=== PATIENT | male | born 1960 | race Caucasian/White ===

== ENCOUNTER 2018-04-24 11:12 | Emergency (ER) | payer MEDICARE ==
[~2018-04-24] VITALS: Ht 188 cm; Wt 104.5 kg
[~2018-04-24 11:12] MED LIST: AMBIEN10 MG PO; ASPIRIN LOW DOS81 M2 PO; FIORICE1 PO; FLEXERIL5 MG PO; IBUPROFEN600 MG PO; LEVAQUIN500 MG PO; PERCOCET1 TA4 PO; TYLENOL ARTH650 M1 OR
[2018-04-24] MEDS ORDERED: ZESTRIL/PRINIV2.5 MG PO (11:21)
[2018-04-24] MEDS ORDERED: ELIQUIS5 MG PO (11:22)
[2018-04-24] MEDS ORDERED: ISOSORB MONO20 MG PO (11:22)
[2018-04-24] MEDS ORDERED: PERCOCET 10/31 COMBO PO (11:23)
[2018-04-24] MEDS ORDERED: ASPIRIN81 MG PO (11:23)
[2018-04-24] MEDS ORDERED: STATIN (11:24)
[2018-04-24] MEDS ORDERED: FAMOTIDINE20 M1 PO (11:24)
[2018-04-24] MEDS ORDERED: AUGMENTIN875TAB PO (12:12)
[2018-04-24 12:18] VITALS: BP 120/79
== END 2018-04-24 12:23 | disposition home or self-care (01) ==
LOC: ED 11:12
DX: H60.91 Unspecified otitis externa, right ear (principal); H66.91 Otitis media, unspecified, right ear; I10 Essential (primary) hypertension; I48.91 Unspecified atrial fibrillation; Z95.5 Presence of coronary angioplasty implant and graft

== ENCOUNTER 2019-05-23 07:38 | Observation (INO) | payer MEDICARE ==
[2019-05-23] VITALS (12 sets, daily range): BP systolic 88–118; BP diastolic 46–67
[~2019-05-23] VITALS: Ht 188 cm; Wt 107.3 kg
[~2019-05-23 07:38] MED LIST changes: +ASPIRIN81 MG PO; +AUGMENTIN875TAB PO; +B COMPLE2 PO; +ELIQUIS5 MG PO; +FAMOTIDINE40 M1 PO; +ISOSORB MONO20 MG PO; +LIPITOR10 M1 PO; +METOPROL TAR25 MG PO; +NITROSTAT0.4 MG SL; +OMEGA-3 FISH1000 MG PO; +PERCOCET 10/31 COMBO PO; +POTASSIUM99 MG PO; +PROBIOTIC1 TAB PO; +STATIN; +STOOL SOFTENER100 MG PO; +ZESTRIL/PRINIV2.5 MG PO
--- NOTE | 2019-05-23 12:00 | NUR ---
PT TRANSPORTED TO [facility] VIA STRETCHER ACCOMPIANED BY OR NURSES. NURSING STAFF SLIDE PT FROM STRETCHER TO BED. PT A/O X3. PERRLA. SPEECH IS CLEAR. RESP EVEN AND UNLABORED. LUNG SOUNDS CLEAR. BOWEL SOUNDS HYPOACTIVE. RT SIDE ABDOMINAL SWELLING. DRESSINGS TO RT ABDOMEN AND LT ABDOMEN; CDI. MARJAN DRAIN TO RLQ; RED FLUID NOTED; SCANT. PT C/O ABDOMINAL PAIN 9 OUT OF 10 ON PAIN SCALE. REPOSITIONED FOR COMFORT, ALSO TORADOL IV 15MG GIVEN. STRONG RADIAL, WEAK PEDAL PULSES. #20 RAC D5 1/2 NS @125 STARTED; SITE APPEARS HEALTHY. INCENTIVE SPIROMETER DISCUSSED; PT STAATES UNDERSTANDING. SCD IN PLACE. SAFETY PRECAUTIONS IN PLACE. CALL LIGHT IN REACH. SPOUSE AT BEDSIDE. WILL CONTINUE TO MONITOR.
--- NOTE | 2019-05-23 13:40 | NUR ---
DR. BRYAN CALLED DUE TO PT IRREGULAR HR 90-110S AND BP RANGING FROM 80S TO LOW 100S SYSTOLICAKKY. MD ORDER 1000 ML BOLUS, TELEMETRY, EKG, AND CONSULT FOR DR. RIOS. DR. RIOS NOTIFIED OF CONSULT BY [employer]. WILL CONTINUE TO MONITOR.
[2019-05-23 14:40] LABS: HEMATOCRIT 38.5 % (39.0-50.0); HEMOGLOBIN 12.6 g/dl (14.0-18.0); IMMATURE GRANULOCYTES 0.6 % (0.0-5.0); MEAN CELL VOLUME 90.6 fL CALC (80.0-100.0); MEAN CORPUSCULAR HGB 29.6 pG CALC (26.0-32.0); MEAN CORPUSCULAR HGB CONC 32.7 g/L CALC (32.0-36.0); NEUT# 7.6 thou/uL (1.82-7.42); RED BLOOD COUNT 4.25 mill/uL (4.70-6.10); RED CELL DISTRI WIDTH 14.1 % (11.5-15.5)
[2019-05-23 15:14] LABS: ALBUMIN 3.7 g/dL (3.2-5.0); ALKALINE PHOSPHATASE 79 u/l (38-126); ANION GAP 14 (6-22 (CALC)); BILIRUBIN, TOTAL 0.6 mg/dL (0.0-1.4); BUN 16 mg/dL (9-20); BUN/CREATININE RATIO 19 (12-20 (CALC)); CARBON DIOXIDE 26 mmol/l (22-30); CHLORIDE 105 mmol/l (95-108); CREATININE 0.8 mg/dL (0.7-1.3); GFR > 60 ML/MIN (>=60 (CALC)); GFR FOR AFR.AMER. > 60 ML/MIN (>=60 (CALC)); MAGNESIUM 1.6 mg/dL (1.6-2.3); POTASSIUM 4.4 mmol/l (3.5-5.1); SGOT/AST 21 u/l (17-59); SODIUM 141 mmol/l (137-146); TOTAL PROTEIN 6.5 g/dL (6.3-8.2)
--- NOTE | 2019-05-23 15:26 | NUR ---
AFTER 1 L BOLUS PT BP READING 118/58, PULSE 82
--- NOTE | 2019-05-23 17:35 | NUR ---
PT BP READING 92/44, PULSE 68. DR. RIOS NOTIFIED. 1 L BOLUS PER MD. WILL CONTINUE TO MONITOR.
--- NOTE | 2019-05-23 19:51 | NUR ---
PT AWAKE RESTING IN BED WITH FAMILY AT BEDSIDE. ALERT AND ORIENTED X4. RESP EVEN AND UNLABORED. LUNGS CLEAR BILAT. ABD SOFT WITH BOWEL SOUNDS PRESENT IN ALL 4 QUADS. 4 LAP INC SITE ALL CLEAN AND DRY WITH DRESSING INTACT. MARJAN DRAIN IS PATENT WITH SCANT AMT OF BLOODY DRAINAGE. DRAIN RECONSTITUTED. PT IS URINATING WITH OUT ANY DIFFICULTY. NO LOWER EXT EDEMA NOTED. PEDAL PULSES PALPATED BILAT. SCD'S ARE ON. PT ENCOURAGED TO USE INSENTIVE SPIROMETRY 10X/HR WHILE AWAKE. IV SITE PATENT WITH NO REDNESS OR SWELLING AT SITE. PT DENIES ANY NAUSEA. MEDICATED WITH PERCOCET 10/325MG ONE P.O FOR ABD DISCOMFORT. B/P 96/67. PT IS AFEBRILE. TELE SR . FREQUENT ROUNDS MADE. CALL GUTIERREZ WITHIN REACH.
--- NOTE | 2019-05-23 22:00 | NUR ---
PT RESTING IN BED. RESP EVEN AND UNLABORED. B/P 98/50. MONITOR READING SR. IV SITE PATENT. SCD'S ON. MARJAN IS PATENT. ALL INC SITE ARE CLEAN AND DRY. FREQUENT ROUNDS MADE. CALL GUTIERREZ WITHIN REACH.
[2019-05-24 00:12] VITALS: BP 97/51
--- NOTE | 2019-05-24 00:26 | NUR ---
PT RESTING IN BED. VOIDED 400CC OF CLEAR YELLLOW URINE. IV SITE PATENT. MARJAN 5CC OF BLOODY DRAINAGE EMPTIED AND MARJAN RECONSTITUTED. ABD IN CLEAN AND DRY. FREQUENT ROUNDS MADE. CALL GUTIERREZ WITHIN REACH .
--- NOTE | 2019-05-24 02:17 | NUR ---
PT MEDICATED WITH PERCOCET 10,G P.O FOR ABD DISCOMFORT. RESP EVEN AND UNLABORED. IV SITE PATENT. NO DISTRESS NOTED. SCD'S ON. INC CLEAN AND DRY. MARJAN PATENT. FREQUENT ROUNDS MADE. CALL GUTIERREZ WITHIN REACH.
--- NOTE | 2019-05-24 04:30 | NUR ---
RESTING IN BED WITH EYES CLOSED. RESP EVEN AND UNLABORED. NO DISTRESS NOTED. ASSESSMENT UNCHANGED. IV SITE PATENT. FREQUENT ROUNDS MADE. CALL GUTIERREZ WITHIN REACH.
[2019-05-24 05:07] VITALS: BP 109/63
--- NOTE | 2019-05-24 06:12 | NUR ---
MEDICATED WITH PERCOCET 10/325MG ONE TAB P.O FOR ABD DISCOMFORT. ABD INC CLEAN AND DRY. MARJAN 3 CC EMPTIED OF BLOODY DRAINAGE. IV SITE PATENT. FREQUENT ROUNDS MADE. CALL GUTIERREZ WITHIN REACH.
[2019-05-24 09:00] VITALS: BP 115/67
--- NOTE | 2019-05-24 09:00 | NUR ---
ASSESSMENT IS COMPLETED: IV SITE IS FREE FROM REDNESS OR EDEMA. HR IS REG , PULSES ARE STRONG X4, ABD IS SOFT WITH ACTIVE BS. BREATH SOUNDS ARE CLEAR, BILATERALLY. TELE MONITOR. SCD IN PLACE. DRESSING ON ABD IS CDI, MARJAN IS DRAINING MINIMAL AMOUNT OF FLUID, BINDER IN PLACE CONTINUE TO OSBERVE AND MONITOR.
[2019-05-24 11:12] VITALS: BP 115/70
--- NOTE | 2019-05-24 11:28 | NUR ---
DISCONTINUED MARJAN DRAIN. PT TOLERATED WELL. FAMILY IN THE ROOM. CONTINUE TO OSBERVE AND MONITOR.
--- NOTE | 2019-05-24 12:00 | NUR ---
PT IS RELAXING IN BED VISITING WITH FAMILY CONITNUE TO OSBERVE AND MONITOR.
--- NOTE | 2019-05-24 12:52 | NUR ---
IV SITE DISCONITNUED CATHETER INTACT. NO REDNESS OR EDMEA. DRESSING ON ABD IS CDI TOOK THE MIDDLE DRESSING OFF WHEN REMOVED THE MARJAN DRAIN. NADIA ARE CDI. MINIMAL BRUISING NOTED,OTHER DRESSINGS HAVE NO DRAINAGE NOTED. CONTINUE TO OBSERVE AND MONITOR. DISCHARGE INSTRUCTIONS GIVEN AND VERBALIZED UNDERSTANDING. Discharge instructions given. Patient verbalizes understanding of same. Discharged in stable condition via Wheelchair to Home with family. All belongings sent with pt.
--- NOTE | 2019-05-24 13:00 | NUR ---
IV FLUIDS ENDIN,
== END 2019-05-24 12:50 | disposition home or self-care (01) ==
LOC: ORM 07:38 → MS2 11:50
PROVIDERS: Internal Medicine; ADMIT Surgery; ATTEND Surgery
PROC: 0YU54JZ Supplement Right Inguinal Region with Synthetic Substitute, Percutaneous Endoscopic Approach (ICD-10-PCS; principal; 2019-05-23)
PROC: 0WUF0JZ Supplement Abdominal Wall with Synthetic Substitute, Open Approach (ICD-10-PCS; 2019-05-23)
PROC: 0JB80ZZ Excision of Abdomen Subcutaneous Tissue and Fascia, Open Approach (ICD-10-PCS; 2019-05-23)
DX: K40.90 Unilateral inguinal hernia, without obstruction or gangrene, not specified as recurrent (principal); K43.2 Incisional hernia without obstruction or gangrene; D17.1 Benign lipomatous neoplasm of skin and subcutaneous tissue of trunk; I48.0 Paroxysmal atrial fibrillation; I25.10 Atherosclerotic heart disease of native coronary artery without angina pectoris; I10 Essential (primary) hypertension; M54.9 Dorsalgia, unspecified; G89.29 Other chronic pain; Z95.5 Presence of coronary angioplasty implant and graft; Z79.82 Long term (current) use of aspirin; Z79.01 Long term (current) use of anticoagulants
CPT/HCPCS: C1781; J0131; J2710; J3475

== ENCOUNTER 2019-10-02 | Day surgery (SDC) | payer MEDICARE ==
[~2019-10-02] MED LIST changes: +CLONAZEPAM1 MG PO
[2019-10-02] MEDS ORDERED: FIORICET PO (07:29)
[2019-11-26] MEDS ORDERED: PERCOCET 10/31 COMBO PO (11:54)
[2019-11-26] MEDS ORDERED: CLONAZEPAM1 MG PO (11:55)
[2019-12-31] MEDS ORDERED: PERCOCET 10/31 COMBO PO (13:18)
[2019-12-31] MEDS ORDERED: CLONAZEPAM1 MG PO (13:30)
[2020-01-28] MEDS ORDERED: PERCOCET 10/31 COMBO PO (14:14)
[2020-01-28] MEDS ORDERED: CLONAZEPAM1 MG PO (14:15)
[2020-02-25] MEDS ORDERED: PERCOCET 10/31 COMBO PO (10:00)
[2020-02-25] MEDS ORDERED: CLONAZEPAM1 MG PO (10:02)
[2020-03-24] MEDS ORDERED: PERCOCET 10/31 COMBO PO (10:40)
[2020-03-24] MEDS ORDERED: CLONAZEPAM1 MG PO (10:41)
[2020-04-21] MEDS ORDERED: PERCOCET 10/31 COMBO PO (10:56)
[2020-04-21] MEDS ORDERED: CLONAZEPAM1 MG PO (10:57)
[2020-05-21] MEDS ORDERED: PERCOCET 10/31 COMBO PO ×4 (11:08→11:18)
[2020-05-21] MEDS ORDERED: CLONAZEPAM1 MG PO (11:10)
[2020-05-21] MEDS ORDERED: DICLOFENAC75 MG PO (11:11)
== END 2019-10-02 09:50 | disposition home or self-care (01) ==
DX: M54.17 Radiculopathy, lumbosacral region (principal)
CPT/HCPCS: Q9967

== ENCOUNTER 2019-10-16 06:59 | Day surgery (SDC) | payer MEDICARE ==
[~2019-10-16 06:59] MED LIST changes: +FIORICET PO
[2019-11-26] MEDS ORDERED: PERCOCET 10/31 COMBO PO (11:54)
[2019-11-26] MEDS ORDERED: CLONAZEPAM1 MG PO (11:55)
[2019-12-31] MEDS ORDERED: PERCOCET 10/31 COMBO PO (13:18)
[2019-12-31] MEDS ORDERED: CLONAZEPAM1 MG PO (13:30)
[2020-01-28] MEDS ORDERED: PERCOCET 10/31 COMBO PO (14:14)
[2020-01-28] MEDS ORDERED: CLONAZEPAM1 MG PO (14:15)
[2020-02-25] MEDS ORDERED: PERCOCET 10/31 COMBO PO (10:00)
[2020-02-25] MEDS ORDERED: CLONAZEPAM1 MG PO (10:02)
[2020-03-24] MEDS ORDERED: PERCOCET 10/31 COMBO PO (10:40)
[2020-03-24] MEDS ORDERED: CLONAZEPAM1 MG PO (10:41)
[2020-04-21] MEDS ORDERED: PERCOCET 10/31 COMBO PO (10:56)
[2020-04-21] MEDS ORDERED: CLONAZEPAM1 MG PO (10:57)
[2020-05-21] MEDS ORDERED: PERCOCET 10/31 COMBO PO ×4 (11:08→11:18)
[2020-05-21] MEDS ORDERED: CLONAZEPAM1 MG PO (11:10)
[2020-05-21] MEDS ORDERED: DICLOFENAC75 MG PO (11:11)
== END 2019-10-16 07:30 | disposition home or self-care (01) ==
LOC: ORM 06:59
PROVIDERS: ATTEND Anesthesiology Pain Medicine
DX: M54.17 Radiculopathy, lumbosacral region (principal); Z53.9 Procedure and treatment not carried out, unspecified reason

== ENCOUNTER 2019-11-05 13:02 | Inpatient (IN) | payer MEDICARE, MEDICAID ==
[~2019-11-05] VITALS: Ht 188 cm; Wt 95.7 kg
--- NOTE | 2019-11-05 13:04 | NUR ---
TO ROOM VIA STRETCHER FROM IVT
[2019-11-05 14:00] LABS: HEMATOCRIT 39.3 % (39.0-50.0); HEMOGLOBIN 12.8 g/dl (14.0-18.0); IMMATURE GRANULOCYTES 0.4 % (0.0-5.0); MEAN CELL VOLUME 89.3 fL CALC (80.0-100.0); MEAN CORPUSCULAR HGB 29.1 pG CALC (26.0-32.0); MEAN CORPUSCULAR HGB CONC 32.6 g/L CALC (32.0-36.0); NEUT# 8.06 thou/uL (1.82-7.42); RED BLOOD COUNT 4.4 mill/uL (4.70-6.10); RED CELL DISTRI WIDTH 14.1 % (11.5-15.5)
--- NOTE | 2019-11-05 14:05 | NUR ---
PT PRESENTS WITH RIGHT UPPER ABD PAIN OF 10/10. PT WAS TRANSPORTED FROM IV THERAPY BY KIRBY DANG. PT WAS HERE FOR POST OP EVALUATION AND WAS EXPERIANCING SEVERE PAIN. MENTIONED BY KIRBY DANG REPORT PT RECIEVED 1 MG DILAUDID IM AT 1145 1 MG DILAUDID IM AT 1225 PT STATED TO BE IN CONTINUED PAIN. CONSULTED WITH CHARGE NURSE MEÑO CASTRO AND DR. KAM ABOUT MED HX GIVIN TO ME AND TALKED TO PT ABOUT THE RISKS OF GIVING MORE PAIN MEDICATION. PT O2 SAT WERE AT 85-88% ROOM AIR AND O2 WAS APPLIED. PT MADE COMFORTABLE AND BREATHING TECHNIQUES TAUGHT. PT ADVISED THAT MED GIVIN SHOWS SLOWER RESULTS THAN IV. PT VERBALIZED UNDERSTANDING.
[2019-11-05 14:12] LABS: INTERNATIONAL NORMALIZED RATIO 1.1 RATIO (0.7-1.3); PROTHROMBIN TIME 11.6 SECONDS (9.0-12.5)
[2019-11-05 14:13] LABS: ALBUMIN 3.6 g/dL (3.2-5.0); ALKALINE PHOSPHATASE 84 u/l (38-126); BUN 19 mg/dL (9-20); BUN/CREATININE RATIO 29 (12-20 (CALC)); CARBON DIOXIDE 24 mmol/l (22-30); CHLORIDE 99 mmol/l (95-108); CREATININE 0.7 mg/dL (0.7-1.3); GFR > 60 ML/MIN (>=60 (CALC)); GFR FOR AFR.AMER. > 60 ML/MIN (>=60 (CALC)); LIPASE 27 u/l (23-300); POTASSIUM 4.3 mmol/l (3.5-5.1); SGOT/AST 30 u/l (17-59); TOTAL PROTEIN 6.7 g/dL (6.3-8.2)
[2019-11-05 14:20] LABS: ANION GAP 14 (6-22 (CALC)); BILIRUBIN, TOTAL 1.3 mg/dL (0.0-1.4); SODIUM 133 mmol/l (137-146)
--- NOTE | 2019-11-05 15:04 | NUR ---
ABG BEING COMPLETED. O2 REAPPLIED. PT SITTING UP IN BED RESTING, DENIES ANY NEEDS AT THIS TIME.
--- NOTE | 2019-11-05 16:13 | NUR ---
PT SITTING UP IN BED WITH ANTIBIOTICS INFUSING. PT UPDATED ON PENDING ADMISSION
--- NOTE | 2019-11-05 16:32 | NUR ---
SBAR PRINTED TO FLOOR
--- NOTE | 2019-11-05 17:13 | NUR ---
PT TRANSPORTED TO MED SURG STABLE AND IN NO DISTRESS BY MARKOS DANG. CARE ASSUMED TO BASILIA
--- NOTE | 2019-11-05 17:13 | NUR ---
GAVE REPORT TO [facility]
[2019-11-05 18:09] VITALS: BP 116/71
[2019-11-05 19:00] VITALS: BP 98/59
--- NOTE | 2019-11-05 19:00 | NUR ---
RECEIVED REPORT FROM DAY NURSE PATIENT RESTING IN BED, EYES CLOSED, WITH EVEN UNLABORED BREATHING. NO DISCOMFORTS NOTED AT THIS TIME, SPOUSE IN ROOM AND STATED JUST SLEPT. CALL LIGHT AT REACH.
--- NOTE | 2019-11-05 21:30 | NUR ---
PATIENT AWAKE AT THIS TIME, C/O PAIN ON RT ABDOMEN, PRESSURE DRESSING ON ABDOMEN CLEAN AND DRY, EVEN UNLABORED REMAINS ON O2 @ 3LPM VIA NC, CALL LIGHT AT REACH.
--- NOTE | 2019-11-05 23:50 | NUR ---
PATIENT MOANING C/O PAIN ON RT ABDOMEN, PRN DILAUDID GIVEN WILL REEVALUIATE.
[2019-11-06 04:02] VITALS: BP 124/74
--- NOTE | 2019-11-06 04:03 | NUR ---
PATIENT AWAKENED BY SHAPR PAIN ON RT ABDOMEN, PRN DILAUDID GIVEN WILL REEVAULATE.
--- NOTE | 2019-11-06 06:45 | NUR ---
DR. BRYAN MADE AWARE OF THE PHYSICIAN CONSULT
[2019-11-06 06:46] LABS: IMMATURE GRANULOCYTES 0.3 % (0.0-5.0); MEAN CELL VOLUME 89.4 fL CALC (80.0-100.0); MEAN CORPUSCULAR HGB CONC 32.4 g/L CALC (32.0-36.0); NEUT# 7.86 thou/uL (1.82-7.42); RED BLOOD COUNT 4.14 mill/uL (4.70-6.10); RED CELL DISTRI WIDTH 14.4 % (11.5-15.5)
[2019-11-06 08:00] VITALS: BP 97/57
[2019-11-06 11:35] VITALS: BP 92/53
[2019-11-06 16:00] VITALS: BP 82/43
[2019-11-06 18:05] LABS: HEMATOCRIT 35.4 % (39.0-50.0); HEMOGLOBIN 11.2 g/dl (14.0-18.0)
[2019-11-06 19:05] LABS: URINE BLOOD DIPSTICK LARGE (NEGATIVE); URINE GLUCOSE - DIPSTICK NEGATIVE (NEGATIVE); URINE KETONE NEGATIVE (NEGATIVE); URINE LEUK ESTERASE NEGATIVE (NEGATIVE); URINE PROTEIN - DIPSTICK 30 mg/dL (NEG-TRACE); URINE SPECIFIC GRAVITY >=1.030
[2019-11-06 19:10] LABS: URINE BILIRUBIN - DIPSTICK NEGATIVE (NEGATIVE); URINE COLOR AMBER; URINE NITRITE - DIPSTICK POSITIVE (Negative)
[2019-11-06 19:17] VITALS: BP 98/59
[2019-11-06 19:19] LABS: URINE AMORPH SEDIMENT MODERATE hpf (NONE-FER)
--- NOTE | 2019-11-06 20:30 | NUR ---
PATIENT RESTING IN BED WITH EYES CLOSED-EASY TO AROUSE. FAMILY AT BEDSIDE VISITING. PATIENT IS ALERT AND ORIENTEDX3. PATIENT CONT TO C/O SEVERE RLQ PAIN THAT RADIATES TO RIGHT SHOULDER AND NECK. SBP IS STILL LOW. IMDUR AND LOPRESSOR HELD. MEDICATED WITH PERCOCET FOR 8/100 ON PAIN SCALE. PATIENT WITH O2 VIA NASAL CANNULA IN PLACE. IVF NS PATENT AND INFUSING AT 100CC/HR VIA LAC SITE. INSTRUCTED PATIENT REGUARDING SAVE URINE FOR I&O. OFFERED ASSIST WITH SHOWER BUT PATIENT DECLINED.PUNCTURE WOUND TO RLQ JEFF-NO DRAINAGE, NO SWELLING. SAFETY PRECAUTIONS REINFORCED. CALL LIGHT IN REACH. WILL CONT TO MONITOR.
[2019-11-06 23:49] VITALS: BP 102/57
--- NOTE | 2019-11-07 | NUR ---
PATIENT PROVIDED WITH LINENS FOR SHOWER. PATIENT WAS ASSIST WITH SHOWER BY HIS . STATES THAT IT DID FEEL GOOD. BACK IN BED. TELE REAPPLIED. PATIENT MEDICATED WITH DILAUDID 1MG IVP FOR 8/10 PAIN SCALE. SBP IS NOW OVER 100. IVF NS PATENT AND INFUSING AT 100CC/HR. VOIDED IN URINAL 200CC OF VERY DARK LENNIE URINE. RESTING ON COT PROVIDED. SAFETY PRECAUTIONS REINFORCED. CALL LIGHT IN REACH. WILL CONT TO MONITOR.
[2019-11-07 04:00] VITALS: BP 133/83
--- NOTE | 2019-11-07 04:06 | NUR ---
PATIENT APPEARS SLEEPING WITH EYES CLOSED. RESP ARE EVEN AND UNLABORED IVF PATENT AND INFUSING AT 100CC/HR. VIA LEFT AC SITE. TELE MONITOR IN PLACE. RESTING ON COT PROVIDED. CALL LIGHT IN REACH. WILL CONT TO MONITOR.
[2019-11-07 05:13] LABS: HEMATOCRIT 31.6 % (39.0-50.0); HEMOGLOBIN 10.3 g/dl (14.0-18.0); MEAN CELL VOLUME 89.8 fL CALC (80.0-100.0); MEAN CORPUSCULAR HGB 29.3 pG CALC (26.0-32.0); MEAN CORPUSCULAR HGB CONC 32.6 g/L CALC (32.0-36.0); RED BLOOD COUNT 3.52 mill/uL (4.70-6.10); RED CELL DISTRI WIDTH 14.1 % (11.5-15.5)
[2019-11-07 05:43] LABS: BUN 22 mg/dL (9-20); BUN/CREATININE RATIO 26 (12-20 (CALC)); CHLORIDE 98 mmol/l (95-108); CREATININE 0.8 mg/dL (0.7-1.3); GFR > 60 ML/MIN (>=60 (CALC)); GFR FOR AFR.AMER. > 60 ML/MIN (>=60 (CALC)); SODIUM 134 mmol/l (137-146)
[2019-11-07 05:55] LABS: ANION GAP 10 (6-22 (CALC)); CARBON DIOXIDE 30 mmol/l (22-30)
[2019-11-07 08:00] VITALS: BP 119/53
--- NOTE | 2019-11-07 09:00 | NUR ---
PT AWAKE, ALERT, ORIENTED X 3. LUNGS CLEAR, 2 LPM NC. PT IN DISCOMFORT TO RIGHT ABDOMEN ABSCESS SITE. PT AMBULATORY, SMALL, STEADY STEPS. HOPING FOR DISCHARGE TODAY, REAL ESTATE MARKETING COORDINATOR PROVIDED UPDATE ON POSITIVE ESBL IN URINE AND DEVELOPING PNEUMONIA, NO DISCHARGE TODAY. PT STABLE, MEDICATED FOR PAIN NEED ARISES.
[2019-11-07 11:40] VITALS: BP 99/56
--- NOTE | 2019-11-07 13:00 | NUR ---
PT PROVIDED PAIN MEDS PER ABDOMINAL DISCOMFORT. PT MOVED FROM ROOM 274 TO ROOM 278 PER THERMOSTAT PROBLEM.
[2019-11-07 14:47] VITALS: BP 119/88
--- NOTE | 2019-11-07 16:00 | NUR ---
PT SEEN SHIVERING IN THE BED, TEMP NORMAL. ONE HOUR LATER TEMP SEEN TO BE 103.3. BERNARDO JEAN AWARE, ORDERS BCs AND WILL GIVE TYLENOL AFTER DRAW. PT RESTS QUIETLY IN THE BED, NOT SHIVERING AT THIS TIME.
--- NOTE | 2019-11-07 18:58 | NUR ---
REPORT RECEIVED FROM LAURENCE RENO. PT RESTING IN BED. NO S/S OF DISTRESS AT THIS TIME. SAFETY PRECAUTIONS IN PLACE. WILL CONTINUE TO MONITOR
[2019-11-07 19:59] VITALS: BP 116/57
--- NOTE | 2019-11-07 20:15 | NUR ---
PT RESTING IN BED, FAMILY AT BEDSIDE. PT ALERT AND ORIENTED. RESPIRATIONS EVEN AND UNLABORED LUNGS SOUND CLEAR. PEDAL PULSES WEAK. PT DENIES ANY PAIN OR DISCOMFORT AT THIS TIME. SAFETY PRECAUTIONS IN PLACE. WILL CONTINUE TO MONITOR.
[2019-11-08 00:15] VITALS: BP 126/85
--- NOTE | 2019-11-08 02:06 | NUR ---
PT RESTING IN BED. PT SWEATING SHEETS SOILED FROM SWEAT. PT ASSISTED TO THE RESTROOM LINENS CHANGED AT THIS TIME. TEMP IN ROOM AJUSTED PER PT REQUEST. PT REPORTS HAVING PAIN 9/10 PT MEDICATED PER EMAR ORDERS. SAFETY PRECAUTIONS IN PLACE. WILL CONTINUE TO MONITOR.
--- NOTE | 2019-11-08 04:07 | NUR ---
PT RESTING IN BED. RESPIRATIONS EVEN AND UNLABORED ON RA. NO S/S OF DISTRESS AT THIS TIME. WILL CONTINUE TO MONITOR.
[2019-11-08 05:24] LABS: HEMATOCRIT 30.9 % (39.0-50.0); IMMATURE GRANULOCYTES 0.4 % (0.0-5.0); MEAN CELL VOLUME 89.3 fL CALC (80.0-100.0); MEAN CORPUSCULAR HGB 28.9 pG CALC (26.0-32.0); MEAN CORPUSCULAR HGB CONC 32.4 g/L CALC (32.0-36.0); NEUT# 5.21 thou/uL (1.82-7.42); RED BLOOD COUNT 3.46 mill/uL (4.70-6.10); RED CELL DISTRI WIDTH 13.9 % (11.5-15.5)
[2019-11-08 05:46] LABS: ANION GAP 10 (6-22 (CALC)); BUN 15 mg/dL (9-20); BUN/CREATININE RATIO 24 (12-20 (CALC)); CARBON DIOXIDE 29 mmol/l (22-30); CHLORIDE 101 mmol/l (95-108); CREATININE 0.6 mg/dL (0.7-1.3); GFR > 60 ML/MIN (>=60 (CALC)); GFR FOR AFR.AMER. > 60 ML/MIN (>=60 (CALC)); MAGNESIUM 1.7 mg/dL (1.6-2.3); POTASSIUM 3.6 mmol/l (3.5-5.1); SODIUM 136 mmol/l (137-146)
[2019-11-08 07:53] VITALS: BP 113/73
--- NOTE | 2019-11-08 09:00 | NUR ---
PT SEEN AT REST IN THE BED, ALERT AND ORIENTED X 3. LUNGS MOSTLY CLEAR WITH SLIGHT CRACKLES TO BASES, 2 LPM NC. PT MEDICATED FOR PAIN EARLIER THIS SHIFT. PT STATES HE IS FEELING SLIGHTLY BETTER TODAY.
[2019-11-08 11:45] VITALS: BP 115/69
--- NOTE | 2019-11-08 13:00 | NUR ---
PT SEEN BY PHYSICAL THERAPY THIS AFTERNOON, AMBULATED [address] AND BACK AGAIN WITH MODERATE DISCOMFORT. PT AMBULATED TO , SHAVED, HAD BM TODAY AFTER 3 DAYS. MY.
[2019-11-08 16:10] VITALS: BP 110/70
--- NOTE | 2019-11-08 16:33 | NUR ---
PT AT REST IN THE BED AT THIS TIME, NO EVIDENCE OF DISTRESS.
--- NOTE | 2019-11-08 19:00 | NUR ---
REPORT RECEIVED FROM LAURENCE RENO. PT RESTING IN BED. NO S/S OF DISTRESS AT THIS TIME. SAFETY PERCAUTIONS IN [place]. WILL CONITNUE TO MONITOR.
[2019-11-08 19:15] VITALS: BP 124/83; BP 127/73
--- NOTE | 2019-11-08 20:30 | NUR ---
PT RESTING IN BED ALERT AND ORIENTED. RESPIRATIONS EVEN AND UNLABORED ON RA. LUNGS SOUND CLEAR. PEDAL PEULSE ARE STRONG. #18 LAC DUE TO BE CHANGED, SITE APPEARS RED AND WARM TO TOUCH, IV REMOVED. NEW IV #20 RFA STARTED, PT TOLERATED WELL, SITE APPEARS HEALTHY. PT REPORTS HAVING PAIN OF A 7/10 PT MEDICATED PER EMAR ORDERS. SAFETY PRECAUTIONS IN PLACE. WILL CONTINUE TO MONITOR.
[2019-11-09] VITALS (7 sets, daily range): BP systolic 97–133; BP diastolic 61–78
--- NOTE | 2019-11-09 00:15 | NUR ---
PT RESTING IN BED. RESPIRATIONS EVEN AND UNLABORED ON RA. NO S/S OF DISTRESS AT THIS TIME. SAFETY PRECAUTIONS IN PLACE. WILL CONTINUE TO MONITOR.
--- NOTE | 2019-11-09 04:08 | NUR ---
PT RESTING IN BED. NO S/S OF DISTRESS AT THIS TIME. SAFETY PRECAUTIONS IN PLACE. WILL CONTINUE TO MONITOR.
[2019-11-09 05:12] LABS: HEMATOCRIT 30.6 % (39.0-50.0); MEAN CELL VOLUME 89.2 fL CALC (80.0-100.0); MEAN CORPUSCULAR HGB 29.2 pG CALC (26.0-32.0); MEAN CORPUSCULAR HGB CONC 32.7 g/L CALC (32.0-36.0); RED BLOOD COUNT 3.43 mill/uL (4.70-6.10); RED CELL DISTRI WIDTH 13.9 % (11.5-15.5)
[2019-11-09 05:41] LABS: ALBUMIN 2.9 g/dL (3.2-5.0); ANION GAP 9 (6-22 (CALC)); BILIRUBIN, TOTAL 1.4 mg/dL (0.0-1.4); BUN 11 mg/dL (9-20); BUN/CREATININE RATIO 19 (12-20 (CALC)); CARBON DIOXIDE 29 mmol/l (22-30); CHLORIDE 101 mmol/l (95-108); CREATININE 0.6 mg/dL (0.7-1.3); GFR > 60 ML/MIN (>=60 (CALC)); GFR FOR AFR.AMER. > 60 ML/MIN (>=60 (CALC)); POTASSIUM 3.7 mmol/l (3.5-5.1); SGOT/AST 40 u/l (17-59); SODIUM 136 mmol/l (137-146); TOTAL PROTEIN 5.9 g/dL (6.3-8.2)
[2019-11-09 05:44] LABS: ALKALINE PHOSPHATASE 152 u/l (38-126)
--- NOTE | 2019-11-09 07:15 | NUR ---
PATIENT RESTING IN BED, NO S/S RESP DISTRESS, PATIENT ON O2 VIA NC, PATIENT NO S/S RESP DISTRESS, PATIENT HEART RHYTHM IN NORMAL SINUS, PATIENT IVF INFUSING WITHOUT COMPLICATIONS, WILL CONTINUE TO MONITOR PATIENT, CALL LIGHT WITHIN REACH
--- NOTE | 2019-11-09 12:00 | NUR ---
PATIENT A/OX4, NO S/S RESP DISTRESS, PATIENT ON O2 VIA VC, PATIENT NO C/O PAIN AFTER PAIN MED GIVEN, PATIENT HEART RHYTHM SA 78 WITH PAC AND PVC, PATIENT HAS AN HISTORY OF AFIB, PATIENT NO C/O CHEST PAIN, NO C/O PALPITATIONS, WILL CONTINUE TO MONITOR PATIENT, CALL [facility] WITHIN REACH
--- NOTE | 2019-11-09 16:15 | NUR ---
PATIENT RESTING, NO S/S RESP DISTRESS, NO S/S PAIN, PATIENT HEART RHYTHM IN NORMAL SINUS WITH AN HEART RATE OF 88, PATIENT TOLERATED IV ANTIBOTICS, PATIENT PAIN MANAGEMENT UNDER CONTROL LAST PAIN MED GIVEN 919, PATIENT STATED LAST BOWEL MOVMENT 11/08/19, WILL CONTINUE MONITOR PATIENT CALL LIGHT WITHIN REACH
--- NOTE | 2019-11-10 00:42 | NUR ---
PATIENT RESTING IN BED AT THIS TIME WITH O2 VIA NASAL CANNULA IN PLACE. RESTING ON COT PROVIDED. TELE MONITOR IN PLACE. SALINE INFUSING VIA RIGHT FOREARM IV SITE ORDERED. CALL LIGHT IN REACH. WILL CONT TO MONITOR.
[2019-11-10 04:44] VITALS: BP 117/69
--- NOTE | 2019-11-10 04:55 | NUR ---
PATIENT RESTING IN BED WITH AT BEDSIDE. IVF PATENT AND INFUSING VIA RIGHT FOREARM ORDERED. VOIDING QS LENNIE URINE IN URINAL. TELE MONITOR IN PLACE. MEDICATED FOR PAIN WITH PERCOCET 10/325MG PO FOR PAIN. SAFETY PRECAUTIONS REINFORCED. CALL LIGHT IN REACH. WILL CONT TO MONITOR.
[2019-11-10 07:44] VITALS: BP 119/64
--- NOTE | 2019-11-10 07:45 | NUR ---
PATIENT A/OX4, NO S/S RESP DISTRESS, PATIENT ON OXYGEN VIA NC, PATIENT RESTING NO S/S PAIN, PATIENT HEART RHYTHM IN NORMAL SINUS, WILL CONTINUE TO MOMNITOR PATIENT, CALL LIGHT WITHIN REACDH
--- NOTE | 2019-11-10 09:00 | NUR ---
PATIENT A/OX4, C/O PAIN TO ABD PAIN, TREATED PATIENT PER MD ORDERS, PATIENT NO S/S RESP DISTRESS, PATIENT ON O2 VIA NC, WILL CONTINUE TO MONITOR, CALL LIGHT WITHIN REACH
[2019-11-10 11:00] VITALS: BP 97/58
[2019-11-10 15:00] VITALS: BP 102/63
--- NOTE | 2019-11-10 15:00 | NUR ---
PATIENT A/OX4, C/O ABD PAIN TREATED PATIENT PER MD ORDERS, PATIENT NO S/S RESP DISTRESS, PATIENT ON O2 VIA NC, PATIENT ABLE TO AMBULATE, PATIENT VOIDED, PATIENT HEART RHYTHM IN NORMAL SINUS, WILL CONTINUE MONITOR PATIENT CALL LIGHT WITHIN REACH
--- NOTE | 2019-11-10 18:00 | NUR ---
PATIENT PAIN LEVEL DECREASED AFTER PAIN MED GIVEN, PATIENT ON ROOM AIR PATIENT O2 SATS AT 94%, PATIENT TOLERATED ANITBOTICS, PATIENT HEART RHYTHM IN NORMAL SINUS, WILL CONTINUE TO MONITOR PATIENT
[2019-11-10 18:55] VITALS: BP 101/53
--- NOTE | 2019-11-10 20:00 | NUR ---
PATIENT RESTING IN BED AT THIS TIME-C/O SEVERE ABD PAIN. TOO EARLY FOR PERCOCET-OFFERED DILAUDID BUT PATIENT DECLINED AT THIS TIME. WILL WAIT PER PATIENT. TELE MONITOR IN PLACE. IVF PATENT AND INFUSING AT KVO RATE VIA RIGHT FOREARM SITE. ENCOURGED USE OF IS Q1H W/A-REPS OF 10. VERBALIZES UNDERSTANDING BUT NOT ALWAYS COOPERATIVE WITH ACTUALLY DOING THESE EXERCISES. PATIENT FOR PICC PLACEMENT TOMORROW AND ELIQUIS HELD PER DR. RIOS. PATIENT CONT TO REFUSE IMDUR ORDERED AT NIGHT. SAFETY PRECAUTIONS REINFORCED. CALL LIGHT IN REACH. WILL CONT TO MONITOR.
[2019-11-10 23:58] VITALS: BP 127/76
--- NOTE | 2019-11-11 03:28 | NUR ---
PATIENT RESTING IN BED WITH RESTING ON COT PROVIDED. PATIENT /O ABD PAIN-9/10 ON PAIN SCALE AND MEDICATED WITH PERCOCET 10/325MG PO FOR PAIN. TELE MONITOR IN PLACE. CALL LIGHT IN REACH. WILL CONT TO MONITOR.
[2019-11-11 03:54] VITALS: BP 113/64
--- NOTE | 2019-11-11 07:00 | NUR ---
REPORT RECEIVED FROM LAURENCE FOX;PT APPEARS TO BE SLEEPING IN SEMI FOWLERS POSITION WITH SPOUSE AT BEDSIDE;RESPIRATIONS EVEN AND UNLABORED ON RA;NO S/S OF DISTRESS NOTED;TELE MONITORING IN PLACE;IV FLUIDS INFUSING WITH EASE PER ORDER;ALL SAFETY PRECAUTIONS REINFORCED WITH BED IN THE LOWEST POSITION AND CALL LIGHT IN REACH;WILL CONTINUE TO MONITOR
--- NOTE | 2019-11-11 08:00 | NUR ---
SPOKE WITH RADIOLOGY REGARDING PICCLINE PLACEMENT, LORY OUT OF TOWN UNTIL 11/14/19 SO PICCLINE CAN NOT BE PLACED. NOTIFIED.
[2019-11-11 09:45] VITALS: BP 135/85
--- NOTE | 2019-11-11 09:45 | NUR ---
PT RESTING IN SEMI FOWLERS POSITION,A&O X3;VS OBTAINED AND ASSESSMENT COMPLETED;PT REPORTS RUQ PAIN RATING 8/10 ON THE PAIN SCALE AND REQUESTS PAIN MEDICATION,PT MEDICATED WITH PRN PERCOCET 10/325MG PO;RESPIRATIONS EVEN AND UNLABORED ON RA,CLEAR LUNG SOUNDS;ABDOMEN DISTENDED/SOFT ON PALPATION AND ACTIVE IN ALL 4 QUADRANTS;STRONG PEDAL PULSES;SKIN INTACT;TELE MONITORING IN PLACE:#20G TO RFA INFUSING NS @ KVO,SITE APPEARS HEALTHY;PT DENIES ANY ADDITIONAL NEEDS AT THIS TIME AND IS ENCOURAGED TO CALL FOR ASSISTANCE IF NEEDED;FALL PRECAUTIONS IN PLACE WITH CALL LIGHT IN REACH;WILL CONTINUE TO MONITOR
[2019-11-11 09:50] VITALS: BP 135/85
--- NOTE | 2019-11-11 10:14 | NUR ---
PT TRANSPORTED TO [facility] IN STABLE CONDITION VIA WHEELCHAIR ACCOMPANIED BY ELAINE GONZALEZ.
[2019-11-11] MEDS ORDERED: ERTAPENEM1 GM IV (11:25)
--- NOTE | 2019-11-11 11:30 | NUR ---
AT BEDSIDE DISCUSSING POC INCLUDING PLANS TO D/C HOME.
--- NOTE | 2019-11-11 11:39 | NUR ---
SPOKE WITH TRISH IN SCHEDULING. SCHEDULING TO CALL PATIENT WITH TIME/DATE OF PICCLINE INSERION.
--- NOTE | 2019-11-11 11:54 | NUR ---
ALL DISCHARGE INSTRUCTIONS PROVIDED AT THIS TIME;RX FOR INVANZ PROVIDED AND WAS SENT TO IV THERAPY;PT TO RETURN TO IV THERAPY 11/12/19 @ 11AM;SCHEDULING TO CALL PT WITH TIME/DATE FOR PICCLINE INSERTION;IV ABX HUNG AT THIS TIME;PT DENIES ANY ADDITIONAL QUESTIONS OR NEEDS;PT TO BE D/C HOME AFTER ABX ADMINISTRATION AND TRANPORTTAION TO BE PROVIDED BY SPOUSE.WILL CONTINUE TO MONITOR
--- NOTE | 2019-11-11 12:56 | NUR ---
Discharge instructions given. Patient verbalizes understanding of same. Discharged in stable condition via Ambulatory to Home with spouse. All belongings sent with pt. PT AMBULATED WITH A STEADY GAIT TO LOBBY FOR D/C HOME ACCOMPANIED BY SPOUSE.PT REFUSED WHEELCHAIR.
[2019-11-26] MEDS ORDERED: PERCOCET 10/31 COMBO PO (11:54)
[2019-11-26] MEDS ORDERED: CLONAZEPAM1 MG PO (11:55)
[2019-12-31] MEDS ORDERED: PERCOCET 10/31 COMBO PO (13:18)
[2019-12-31] MEDS ORDERED: CLONAZEPAM1 MG PO (13:30)
[2020-01-28] MEDS ORDERED: PERCOCET 10/31 COMBO PO (14:14)
[2020-01-28] MEDS ORDERED: CLONAZEPAM1 MG PO (14:15)
[2020-02-25] MEDS ORDERED: PERCOCET 10/31 COMBO PO (10:00)
[2020-02-25] MEDS ORDERED: CLONAZEPAM1 MG PO (10:02)
[2020-03-24] MEDS ORDERED: PERCOCET 10/31 COMBO PO (10:40)
[2020-03-24] MEDS ORDERED: CLONAZEPAM1 MG PO (10:41)
[2020-04-21] MEDS ORDERED: PERCOCET 10/31 COMBO PO (10:56)
[2020-04-21] MEDS ORDERED: CLONAZEPAM1 MG PO (10:57)
[2020-05-21] MEDS ORDERED: PERCOCET 10/31 COMBO PO ×4 (11:08→11:18)
[2020-05-21] MEDS ORDERED: CLONAZEPAM1 MG PO (11:10)
[2020-05-21] MEDS ORDERED: DICLOFENAC75 MG PO (11:11)
== END 2019-11-11 12:56 | disposition home or self-care (01) | DRG 193 ==
LOC: ED 13:02 → ED-I 15:50 → ED 16:29 → ED-I 16:30 → MS2 16:30
PROVIDERS: Family Medicine; Nurse Practitioner Adult Health; Nurse Practitioner Family; ADMIT Internal Medicine; ATTEND Internal Medicine
DX: J18.9 Pneumonia, unspecified organism (principal); J96.01 Acute respiratory failure with hypoxia; K75.0 Abscess of liver; T81.43XA Infection following a procedure, organ and space surgical site, initial encounter; Z16.12 Extended spectrum beta lactamase (ESBL) resistance; R18.8 Other ascites; G89.18 Other acute postprocedural pain; I25.10 Atherosclerotic heart disease of native coronary artery without angina pectoris; G89.4 Chronic pain syndrome; I48.0 Paroxysmal atrial fibrillation; E78.5 Hyperlipidemia, unspecified; B96.20 Unspecified Escherichia coli [E. coli] as the cause of diseases classified elsewhere; Y84.8 Other medical procedures as the cause of abnormal reaction of the patient, or of later complication, without mention of misadventure at the time of the procedure; Z79.01 Long term (current) use of anticoagulants; Z95.5 Presence of coronary angioplasty implant and graft; R19.01 Right upper quadrant abdominal swelling, mass and lump
CPT/HCPCS: Q3014; Q9967; S0164

== ENCOUNTER 2021-01-19 06:33 | Day surgery (SDC) | payer MEDICARE, MEDICAID ==
[~2021-01-19] VITALS: Ht 188 cm; Wt 104.3 kg
[~2021-01-19 06:33] MED LIST changes: +DICLOFENAC75 MG PO; +ERTAPENEM1 GM IV; +MEDDOSEPAK PO
[2021-01-19 09:16] VITALS: BP 118/66
[2021-03-16] MEDS ORDERED: PERCOCET 10/31 COMBO PO (08:31)
[2021-04-27] MEDS ORDERED: PERCOCET 10/31 COMBO PO (09:38)
== END 2021-01-19 09:00 | disposition home or self-care (01) ==
LOC: ENDO 06:33 → ORM 08:45 → ENDO 09:00 → ORM 09:50
PROVIDERS: ATTEND Surgery
PROC: 0DJD8ZZ Inspection of Lower Intestinal Tract, Via Natural or Artificial Opening Endoscopic (ICD-10-PCS; principal; 2021-01-19)
PROC: 0DJ08ZZ Inspection of Upper Intestinal Tract, Via Natural or Artificial Opening Endoscopic (ICD-10-PCS; 2021-01-19)
DX: Z12.11 Encounter for screening for malignant neoplasm of colon (principal); K64.8 Other hemorrhoids; K21.9 Gastro-esophageal reflux disease without esophagitis; K44.9 Diaphragmatic hernia without obstruction or gangrene; I48.91 Unspecified atrial fibrillation; Z95.5 Presence of coronary angioplasty implant and graft; Z20.822 Contact with and (suspected) exposure to COVID-19
CPT/HCPCS: 43235; G0121